=== PATIENT | male | born 1975 | race Caucasian/White ===

== ENCOUNTER 2019-09-08 06:12 | Inpatient (IN) | payer OTHER ==
[2019-09-08] MEDS ORDERED: Sodium Chloride 0.9% 10 ML Syringe FLUSH PRN (06:52)
[2019-09-08] MEDS ORDERED: HYDROmorphone 1 MG/ML Syringe IVPUSH ONE (06:53)
[2019-09-08] MEDS ORDERED: Midazolam 1 MG/ML 2 ML SDV IVPUSH ONE (06:53)
--- NOTE | 2019-09-08 07:01 | EDM.PDOC ---
ED HPI GENERAL MEDICAL PROBLEM - General Chief Complaint: Abdominal Pain Stated Complaint: LOWER ABD PAIN Time Seen by Provider: 09/08/19 06:45 Source of Information: Reports: Patient, Old Records, RN History Limitations: Reports: No Limitations - History of Present Illness INITIAL COMMENTS - FREE TEXT/NARRATIVE: 44 yo male with a long past hx of having a current abdominal hernia that he manages with a truss presents with what he thinks is about 3 hrs of this hernia being incarcerated. He says the hernia is more painful and prominent. He has not had any vomiting. This occurred after he had taken the truss off, but it was not associated with any exertion. 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 (see below) (none) Lower Abdomen Pain Score (Numeric/FACES): 9 - Related Data Allergies Allergy/AdvReac Type Severity Reaction Status Date / Time sulfamethoxazole Allergy Hives Verified 09/08/19 06:30 [From Bactrim] trimethoprim [From Bactrim] Allergy Hives Verified 09/08/19 06:30 Home Meds: Home Meds amLODIPine Besylate [Norvasc] 10 mg PO DAILY 09/08/19 [History] Past Medical History Cardiovascular History: Reports: Hypertension Musculoskeletal History: Reports: Fracture Other Musculoskeletal History: foot Endocrine/Metabolic History: Reports: Obesity/BMI 30+ - Infectious Disease History Infectious Disease History: Reports: Chicken Pox - Past Surgical History GI Surgical History: Reports: Other (See Below) Other GI Surgeries/Procedures: hernia x3 Surgery x2 Musculoskeletal Surgical History: Reports: Arthroscopic Procedure Social & Family History - Tobacco Use Smoking Status *Q: Current Some Day Smoker Years of Tobacco use: 20 Packs/Tins Daily: 1 Used Tobacco, but Quit: No Second Hand Smoke Exposure: Yes - Caffeine Use Caffeine Use: Reports: None - Recreational Drug Use Recreational Drug Use: No ED ROS GENERAL - Review of Systems Review Of Systems: See Below Constitutional: Reports: No Symptoms GI/Abdominal: Reports: Abdominal Pain, Other (bulge on anterior abdomen.). Denies: Black Stool, Bloody Stool, Constipation, Diarrhea, Distension, Flatus, Hematemesis, Hematochezia, Melena, Nausea, Vomiting : Reports: No Symptoms Musculoskeletal: Reports: No Symptoms Skin: Reports: No Symptoms Neurological: Reports: No Symptoms Psychiatric: Reports: No Symptoms ED EXAM, GI/ABD - Physical Exam Exam: See Below Exam Limited By: No Limitations General Appearance: Alert, WD/WN, No Apparent Distress, Obese Eyes: Bilateral: Normal Appearance Ears: Hearing Grossly Normal Nose: Normal Inspection, No Blood Throat/Mouth: Normal Voice, No Airway Compromise Head: Atraumatic, Normocephalic Neck: Normal Inspection Respiratory/Chest: No Respiratory Distress, Lungs Clear, Normal Breath Sounds, No Accessory Muscle Use Cardiovascular: Regular Rate, Rhythm, No Edema GI/Abdominal Exam: Normal Bowel Sounds, Soft, Tender, Hernia (anterior abdomen, incarcerated). No: Guarding, Rigid, Rebound Extremities: Normal Inspection, Normal Range of Motion, Non-Tender, No Pedal Edema Neurological: Alert, Oriented, CN II-XII Intact, Normal Cognition, No Motor/ Sensory Deficits Psychiatric: Normal Affect, Normal Mood Skin Exam: Warm, Dry, Intact, Normal Color, No Rash Course - Vital Signs Text/Narrative:: Dr. Tomer Hou called @ [phone], will see in ER. Last Recorded V/S: Last Vital Signs Temp 36.6 C 09/08/19 06:28 Pulse 89 09/08/19 06:28 Resp 16 09/08/19 06:28 BP 140/91 H 09/08/19 06:28 Pulse Ox 97 09/08/19 06:28 - Orders/Labs/Meds Orders: Active Orders 24 hr Category Date Time Status Sodium Chloride 0.9% [Saline Flush] Med 09/08/19 06:52 Active 10 ml FLUSH ASDIRECTED PRN Saline Lock Insert [OM.PC] Routine Oth 09/08/19 06:52 Ordered Medication Orders Sodium Chloride (Saline Flush) 10 ml FLUSH ASDIRECTED PRN PRN Reason: Keep Vein Open Meds: Medications Generic Name Dose Route Start Last Admin Trade Name Freq PRN Reason Stop Dose Admin Sodium Chloride 10 ml 09/08/19 06:52 Saline Flush FLUSH ASDIRECTED PRN Keep Vein Open Discontinued Medications Generic Name Dose Route Start Last Admin Trade Name Freq PRN Reason Stop Dose Admin Hydromorphone HCl 1 mg 09/08/19 06:53 09/08/19 07:02 Dilaudid IVPUSH 09/08/19 06:54 1 mg ONETIME ONE Administration Midazolam HCl 3 mg 09/08/19 06:53 09/08/19 07:06 Versed 1 Mg/Ml IVPUSH 09/08/19 06:54 3 mg ONETIME ONE Administration Departure - Departure Time of Disposition: 07:30 Disposition: Admitted As Inpatient 66 Condition: Fair Clinical Impression: Incarcerated hernia - Discharge Information *PRESCRIPTION DRUG MONITORING PROGRAM REVIEWED*: No *COPY OF PRESCRIPTION DRUG MONITORING REPORT IN PATIENT MYESHA: No Referrals: PCP,None [Primary Care Provider] - Forms: ED Department Discharge Sepsis Event Note - Evaluation Sepsis Screening Result: No Definite Risk - Focused Exam Vital Signs: Vital Signs Temp Pulse Resp BP Pulse Ox 09/08/19 06:28 36.6 C 89 16 140/91 H 97 Date Exam was Performed: 09/08/19 Time Exam was Performed: 07:21 - My Orders Last 24 Hours: My Active Orders 09/08/19 06:52 Sodium Chloride 0.9% [Saline Flush] 10 ml FLUSH ASDIRECTED PRN Saline Lock Insert [OM.PC] Routine - Assessment/Plan Last 24 Hours: My Active Orders 09/08/19 06:52 Sodium Chloride 0.9% [Saline Flush] 10 ml FLUSH ASDIRECTED PRN Saline Lock Insert [OM.PC] Routine
[2019-09-08] MEDS ORDERED: Naloxone 0.4 MG/ML SDV IV PRN (07:43)
[2019-09-08] MEDS ORDERED: Dextrose 5%-Lactated Ringers 1,000 ML IV SCH (07:45)
[2019-09-08] MEDS ORDERED: Bupivacaine 0.5% 50 ML MDV ONE (07:55)
[2019-09-08] MEDS ORDERED: Lidocaine 1% with EPINEPHrine 1:100,000 50 ML MDV ONE (07:55)
[2019-09-08] MEDS ORDERED: cefOXitin 2 GM in Sodium Chloride 0.9% 50 ML IV ONE (08:00)
[2019-09-08] MEDS ORDERED: Ketamine 500 MG/5 ML MDV IV SCH (08:00)
[2019-09-08] MEDS ORDERED: Ketamine 50 MG in Sodium Chloride 0.9% 49.5 ML IV SCH (08:00)
[2019-09-08] MEDS ORDERED: Propofol 200 MG/20 ML SDV ONE ×2 (08:08→09:50)
[2019-09-08] MEDS ORDERED: Neostigmine Methylsulfate 1 MG/ML 5 ML Syringe ONE (08:08)
[2019-09-08] MEDS ORDERED: Rocuronium 50 MG/5 ML Vial ONE (08:08)
[2019-09-08] MEDS ORDERED: Dexamethasone 4 MG/ML SDV ONE (08:08)
[2019-09-08] MEDS ORDERED: Succinylcholine 200 MG/10 ML MDV ONE (08:08)
[2019-09-08] MEDS ORDERED: Glycopyrrolate 0.2 MG/ML 5 ML MDV ONE (08:08)
[2019-09-08] MEDS ORDERED: Ondansetron 4 MG/2 ML SDV ONE (08:08)
[2019-09-08] MEDS ORDERED: fentaNYL 250 MCG/5 ML SDV ONE ×2 (08:08→08:27)
[2019-09-08] MEDS ORDERED: Meropenem 500 MG SDV ONE (09:05)
[2019-09-08] MEDS ORDERED: Lactated Ringers 1,000 ML ONE (10:19)
[2019-09-08] MEDS ORDERED: Ondansetron 4 MG/2 ML SDV IVPUSH PRN (11:03)
[2019-09-08] MEDS ORDERED: hydrOXYzine HCL 100 MG/2 ML SDV IM PRN (11:03)
[2019-09-08] MEDS ORDERED: Cyclobenzaprine 10 MG Tab PO PRN (11:04)
[2019-09-08] MEDS: Dextrose 5%-Lactated Ringers 1,000 ML IV SCH ×2 (11:19→16:52)
[2019-09-08] MEDS: HYDROmorphone/Normal Saline 15 MG/30 ML PCA IV PRN (11:49)
[2019-09-08] MEDS: cefOXitin 2 GM in Sodium Chloride 0.9% 50 ML IV SCH ×2 (12:54→18:32)
[2019-09-08] MEDS: Pantoprazole 40 MG Vial IVPUSH SCH (12:56)
[2019-09-08] MEDS: amLODIPine 10 MG Tab PO SCH (13:01)
[2019-09-09] MEDS: cefOXitin 2 GM in Sodium Chloride 0.9% 50 ML IV SCH ×3 (02:05→13:36)
[2019-09-09] MEDS: Dextrose 5%-Lactated Ringers 1,000 ML IV SCH (04:29)
--- NOTE | 2019-09-09 09:37 | PN ---
DATE OF SERVICE: 09/09/2019 SUBJECTIVE: Jad is postoperative day#1. He states his pain is controlled. He did have a temperature max of 100.9, worked on his incentive spirometer, and this a.m. it is 99. Oral intake, sips of clear liquids. Urine output via Feliciano catheter is 1525. REVIEW OF SYSTEMS: Remainder of review of systems negative for any pertinent positives and negatives. OBJECTIVE: GENERAL: Jad Vasques is a pleasant 44-year-old male, alert and orientated. VITAL SIGNS: TPR is 99, 69, 16, blood pressure 123/78. HEENT: Negative. NECK: Supple. HEART: Regular rate and rhythm. LUNGS: Clear. ABDOMEN: Dressing has some shadowing, otherwise negative. Abdominal binder is on. EXTREMITIES: Without peripheral edema. ASSESSMENT: Exploratory laparotomy with: 1. Repair of recurrent incarcerated incisional hernia. 2. Repair of incarcerated recurrent umbilical hernia. 3. Small bowel resection. 4. Small bowel strictureplasty. 5. Repair of small-bowel injury at point the bowel entering hernia sac. 6. Tube decompression of small bowel. 7. Removal of contracted intraperitoneal mesh x2. 8. Partial omentectomy and excision of appendix epiploica en bloc with hernia sac. 9. Placement of Interceed mesh. POSTOPERATIVE DIAGNOSIS: 1. Incarcerated recurrent incisional and incarcerated recurrent umbilical hernias. 2. Segment of small bowel with extensive mesenteric hemorrhage. 3. Segment of small bowel including stricture. 4. Marked distention of small bowel. 5. Contracted intraperitoneal mesh x2. 6. Partial portion of the omentum and appendix epiploica transverse colon ischemia secondary to incarceration. 7. Focal small bowel elongated edge of hernia repair. 8. Surgeon: Ran Hou MD. Date: 09/08/2019. PLAN: 1. Continue sips of clear liquids. Schedule and have consent signed for delayed primary closure on 09/10/2019. IV, local sedation with TAP block. N.p.o. after midnight. Surgeon: Ran Hou MD. 2. Discontinue Feliciano catheter. 3. Decrease IV to 100 mL per hour. 4. Continue good pulmonary toilet. 5. We will evaluate p.r.n. or in a.m. Nati Mcgarry PA-C /[id number]
[2019-09-09] MEDS: amLODIPine 10 MG Tab PO SCH (09:44)
[2019-09-09] MEDS: Pantoprazole 40 MG Vial IVPUSH SCH (13:36)
[2019-09-10] MEDS ORDERED: Lidocaine 1% with EPINEPHrine 1:100,000 50 ML MDV ONE (06:33)
[2019-09-10] MEDS ORDERED: Bupivacaine 0.5% 50 ML MDV ONE (06:33)
[2019-09-10] MEDS ORDERED: Meropenem 500 MG SDV ONE (06:33)
[2019-09-10] MEDS ORDERED: Midazolam 1 MG/ML 2 ML SDV ONE (06:55)
[2019-09-10] MEDS ORDERED: fentaNYL 100 MCG/2 ML SDV ONE (06:55)
[2019-09-10] MEDS ORDERED: Propofol 200 MG/20 ML SDV ONE ×2 (06:56→07:34)
[2019-09-10] MEDS ORDERED: Lactated Ringers 1,000 ML ONE (07:25)
[2019-09-10] MEDS: amLODIPine 10 MG Tab PO SCH (09:20)
--- NOTE | 2019-09-10 09:39 | PN ---
DATE OF SERVICE: 09/10/2019 SUBJECTIVE: Jad is n.p.o. He will be having delayed primary closure today. Max temperature is 101.1. Pain has been controlled. REVIEW OF SYSTEMS: Remainder of review of systems negative for any pertinent positives and negatives. OBJECTIVE: GENERAL: Jad Vasques is a 44-year-old male. He is alert and orientated. VITAL SIGNS: TPR 97.7, 94, 18, blood pressure 140/72. HEENT: Negative. NECK: Supple. HEART: Regular rate and rhythm. LUNGS: Clear. ABDOMEN: Dressing dry and intact. Abdominal binder is on. EXTREMITIES: Without peripheral edema. ASSESSMENT: Exploratory laparotomy with: 1. Repair of recurrent incarcerated incisional hernia. 2. Repair of incarcerated recurrent umbilical hernia. 3. Small bowel resection. 4. Small bowel strictureplasty. 5. Repair of small-bowel injury at point the bowel entering hernia sac. 6. Tube decompression of small bowel. 7. Removal of contracted intraperitoneal mesh x2. 8. Partial omentectomy and excision of appendix epiploica en bloc with hernia sac. 9. Placement of Interceed mesh. PLAN: Orders to be written after delayed primary closure. Nati Mcgarry PA-C /[id number]
[2019-09-10] MEDS: Docusate Sodium 100 MG Cap PO SCH ×2 (10:41→20:27)
[2019-09-10] MEDS: Bisacodyl 5 MG Tab PO SCH ×2 (10:41→20:27)
[2019-09-10] MEDS: Dextrose 5%-Lactated Ringers 1,000 ML IV SCH ×2 (10:43→20:26)
[2019-09-10] MEDS: Pantoprazole 40 MG Vial IVPUSH SCH (12:52)
[2019-09-10] MEDS: HYDROmorphone/Normal Saline 15 MG/30 ML PCA IV PRN (12:54)
[2019-09-10] MEDS ORDERED: oxyCODONE 5 MG Tab PO PRN (14:20)
[2019-09-11] MEDS ORDERED: Pantoprazole 40 MG Tab.CR PO SCH (09:00)
[2019-09-11] MEDS: Bisacodyl 5 MG Tab PO SCH (09:15)
[2019-09-11] MEDS: amLODIPine 10 MG Tab PO SCH (09:15)
[2019-09-11] MEDS: Docusate Sodium 100 MG Cap PO SCH (09:15)
--- NOTE | 2019-09-11 10:19 | DISCH ---
ADMISSION DIAGNOSES: 1. Abdominal pain. 2. Hypertension. DISCHARGE DIAGNOSES: Exploratory laparotomy with: 1. Repair of recurrent incarcerated incisional hernia. 2. Repair of incarcerated recurrent umbilical hernia. 3. Small bowel resection. 4. Small-bowel strictureplasty. 5. Repair of small-bowel injury at point the bowel entering hernia sac. 6. Tube decompression of small bowel. 7. Removal of contracted intraperitoneal mesh x2. a. Partial omentectomy and excision of appendix epiploica en bloc with hernia sac. 8. Placement of Interceed mesh. Date of surgery: 09/08/2019. Surgeon: Ran Hou MD. 9. Delayed primary closure on 09/10/2019. Ran Hou MD. HISTORY: Jad Vasques is a 44-year-old male who presented to [facility] Emergency Department with extreme abdominal pain. After preoperative evaluation and discussion of possible risks and possible complications, he wished to proceed with surgical procedure. HOSPITAL COURSE: Jad had his surgery on 09/08/2019. He had no operative complications. He had delayed primary closure on 09/10/2019. His diet was advanced. He had a bowel movement. Pain was controlled. Vital signs were stable. He was able to be discharged to home on 09/11/2019. PHYSICAL EXAMINATION: GENERAL: Dale Vasques is a 44-year-old male. VITAL SIGNS: Height is 5 feet 8.11 inches, weight is 236 pounds. TPR is 97.2, 75, 16, blood pressure 131/85. HEENT: Negative. NECK: Supple. HEART: Regular rate and rhythm. LUNGS: Clear. ABDOMEN: Aquacel dressing is on. He has 2 ESA drains and they are draining a light red drainage of 45 and 70 mL respectively. EXTREMITIES: Without peripheral edema. DISPOSITION: Discharged to home. CONDITION: Stable and improving. FOLLOWUP APPOINTMENT: Ran Hou MD, at [facility] on 09/18/2019 at 9:15 a.m. HOME MEDICATIONS: Colace 100 mg oral b.i.d. #60. He is to alternate Tylenol with ibuprofen, which he has at home for pain. Continue Norvasc 10 mg oral daily. DIET: Usual diet as tolerated. Drink 8 to 10 glasses of water a day. ACTIVITY: As tolerated. No lifting greater than 10 pounds for 6 weeks. Driving: Do not drive for 1 week. Shower/bathing, may shower. DISCHARGE INSTRUCTIONS: 1. Notify provider if any fever, increased pain, nausea, or vomiting. Keep site clean and dry. Wound incision care: Take off Aquacel dressing on 09/13/2019. 2. Strip, empty, measure, and record ESA drains 4 times a day and bring record of drainage to clinic appointments. 3. Wear abdominal binder for 6 weeks. SPECIAL INSTRUCTIONS: Use incentive spirometer 10 times every hour while awake.
--- NOTE | 2019-09-16 08:52 | OR ---
DATE OF PROCEDURE: 09/08/2019 SURGEON: Ran Hou MD PREOPERATIVE DIAGNOSIS: Incarcerated periumbilical hernia with extensive incarcerated small bowel. POSTOPERATIVE DIAGNOSES: 1. Incarcerated recurrent incisional hernia and incarcerated recurrent umbilical hernia. 2. Segment of small bowel with extensive mesenteric hemorrhage. 3. Segment of small bowel involving a stricture secondary to longstanding angulation within the hernia. 4. Marked distention of proximal small bowel. 5. Portion of omentum and appendix epiploica in transverse colon were ischemic secondary to incarceration in the hernias. 6. Contaminated intraperitoneal mesh x2. 7. Focal small bowel deserosalization at edge of previous hernia repair secondary to adherence to intraperitoneal mesh. OPERATIVE PROCEDURES: 1. Exploratory laparotomy with: a. Repair of recurrent incarcerated incisional hernia (88309). b. Repair of incarcerated recurrent umbilical hernia (09868). c. Small bowel resection (86888). d. Small bowel stricturoplasty (07438). e. Repair of area of small bowel injury at point where bowel entered the hernia sac and it was adherent to intraperitoneal mesh (40610). f. Tube decompression of proximal small bowel (68192). g. Removal of contaminated intraperitoneal mesh x2 (73735). h. Partial omentectomy and excision of appendix epiploica en bloc with hernia sac (54997). i. Placement of Interceed mesh to limit recurrent adhesion formation between pelvic and abdominal wall and underlying viscera (56310). ANESTHESIA: General. INDICATIONS FOR PROCEDURE: This is a 44-year-old presenting with a longstanding recurrent hernia that he has had repaired twice previously. The hernia in the umbilical area as well as 1 more supraumbilical ventral hernia area both of which by history were repaired with a mesh plug technique in either [place] or [place]. The patient has developed a large recurrent hernia involving both aspects of the previous repairs and now presenting with severe pain and obvious incarcerated bowel and the hernias at this point. Temporary reduction was undertaken in the emergency room which was unsuccessful. The plan will be to proceed with an exploratory laparotomy with reduction of the incarcerated components of the hernia as well as then repair of the hernias, and if bowel resection is required, the patient is aware that we would not likely place a new mesh which would make the hernia repairs at high risk for subsequent recurrence. Potential risks including bleeding, infection, injury to underlying viscera, possible leaks from any GI tract closures were all reviewed with the patient and he wishes to proceed. DETAILS OF PROCEDURE: The patient was taken to the operating room after general endotracheal anesthesia was induced, a Feliciano catheter was inserted, and the abdomen was prepped and draped. A midline incision which included incision around the umbilicus and somewhat inferior to this that was roughly handbreadth further superiorly was made and carried down through the skin and subcutaneous tissue. The ventral hernia sac was encountered above the umbilicus. This was dissected down to the level of fascia on each level. There was a small bridge of intact fascia between that and the umbilical hernia, which also was quite large and such that dissection of that sac likewise was then completed after intact fascia. The hernia sacs were at this point more or less a combined entity and both hernia sacs were open and the patient was noted to have a large amount of incarcerated small bowel within it. Portion of the small bowel had quite a bit in the way of mesenteric hemorrhage within it and questionable viability. There was another segment of small bowel coming into the hernia which had likely been distorted for some time, and after reduction, we had persistent stricture with the estimated lumen being less than pencil size in diameter. The patient had the 2 intraperitoneal meshes which by definition at this point would be contaminated with the bowel resection. One of these had loop of small bowel which were densely adherent to it along with the adjacent hernia sac and that bowel was then deserosalized as it was dissected away from the hernia sac and adherent mesh. The hernia sac was then excised flush with the fascia using Harmonic Scalpel along with viola. The hernia sac contained some ischemic omentum as well as a single appendix epiploica from the transverse colon which was ischemic and these were excised en bloc with the hernia sac and sent as a specimen. At this point, the area of the mesenteric hemorrhage and small bowel were resected and being divided proximally and distally with ADRIANA stapler. Proximal to this, there was marked small bowel distention and in the proximal end of the divided bowel, small opening was made and a [place] sump tube placed. Large volume of air and fluid were evacuated by that means. With that opening being maintained, the more distal segment of bowel was brought up to it and 2 internal firings of the Endo-ADRIANA 60 mm stapler were accomplished. The common opening was closed transversely with the same stapler and angles anastomosed and mesenteric defect approximated with some 3-0 Vicryl stitch. The area of small bowel stricturing was managed by means of maintaining antimesenteric border incision at the point of the stricture and with the bowel flipped over on itself, the one-on-one GI staplers were placed, initially 60 mm ADRIANA fired and second internal firing of the ADRIANA 30 mm stapler. The common opening was then closed transversely with the same stapler as well and the angles anastomosed were reinforced with 3-0 Vicryl stitch. There was no mesenteric defect here to close. The area of small bowel injury at the point where it was adherent to the hernia sac and intraperitoneal mesh was then managed by means of transverse firing of the ADRIANA stapler across the area of deserosalization and this was then reinforced with some 3-0 Vicryl seromuscular stitch as well. During the course of the dissection, 2 potentially contaminated areas of intraperitoneal mesh were then also excised. At this point, no further problems were noted and the abdomen was irrigated with meropenem- containing saline solution. To limit recurrent adhesion formation between the area of the incision as well as adjacent bowel to the abdominal wall, Interceed mesh was placed. The primary small bowel anastomosis was also reinforced with some fibrin sealant. The midline fascia was then approximated with a #2 Vicryl stitch. The skin and subcutaneous tissue were packed open for a planned delayed primary closure in 48 hours. Prior to closure, bilateral transversus abdominis blocks were placed and the patient was taken to the recovery room in satisfactory condition. There were no evident complications. Ran Hou MD /[id number]
== END 2019-09-11 10:30 | disposition home or self-care (01) | DRG 329 ==
LOC: JP.ED 06:12 → JP.SDS 07:33 → JP.ICU 11:15 → JP.MS 17:00
PROVIDERS: ADMIT Surgery; ATTEND Surgery
PROC: 0DB80ZZ Excision of Small Intestine, Open Approach (ICD-10-PCS; principal; 2019-09-08)
PROC: 0WQF0ZZ Repair Abdominal Wall, Open Approach (ICD-10-PCS; 2019-09-08)
PROC: 0WPF0JZ Removal of Synthetic Substitute from Abdominal Wall, Open Approach (ICD-10-PCS; 2019-09-08)
PROC: 0DBU0ZZ Excision of Omentum, Open Approach (ICD-10-PCS; 2019-09-08)
PROC: 0DBJ0ZZ Excision of Appendix, Open Approach (ICD-10-PCS; 2019-09-08)
PROC: 3E0M05Z Introduction of Adhesion Barrier into Peritoneal Cavity, Open Approach (ICD-10-PCS; 2019-09-08)
DX: K43.0 Incisional hernia with obstruction, without gangrene (principal); K66.1 Hemoperitoneum; K55.1 Chronic vascular disorders of intestine; K42.0 Umbilical hernia with obstruction, without gangrene; E66.9 Obesity, unspecified; I10 Essential (primary) hypertension; F17.210 Nicotine dependence, cigarettes, uncomplicated; K63.89 Other specified diseases of intestine; Z88.1 Allergy status to other antibiotic agents; Z79.899 Other long term (current) drug therapy; Z98.890 Other specified postprocedural states; Z88.2 Allergy status to sulfonamides; Z68.35 Body mass index [BMI] 35.0-35.9, adult
CPT/HCPCS: 36415; 80053; 83735; 84100; 85027; 88302; 88304; 88307; 94762; 96374; 96375; 99283; 99285-25; A9270-GY; C9113; J0171; J0330; J0694; J1100; J1170; J2185; J2250; J2405; J2704; J2710; J2795; J3010; J3490; J7050; J7120; J7121

== ENCOUNTER 2020-11-03 10:04 | Emergency (ER) | payer SELFPAY ==
--- NOTE | 2020-11-03 10:31 | EDM.PDOC ---
ED HPI GENERAL MEDICAL PROBLEM - General Chief Complaint: Chest Pain Stated Complaint: CHEST PAIN Time Seen by Provider: 11/03/20 10:48 Source of Information: Reports: Patient, RN Notes Reviewed History Limitations: Reports: No Limitations - History of Present Illness INITIAL COMMENTS - FREE TEXT/NARRATIVE: 45-year-old gentleman presents emergency department a complaint of chest pain, he states the chest pain came on last night when he tried to lay down go to bed describes it more as a pressure predominantly on the right side still feel a little flushed not necessarily diaphoretic maybe dizzy not necessarily nauseated. He is very concerned however he did not admit to eating a meal that may have caused some reflux type symptomology which she has had in the past just prior to this episode of chest discomfort Right Chest Pain Score (Numeric/FACES): 1 - Related Data Allergies Allergy/AdvReac Type Severity Reaction Status Date / Time lactose Allergy Abdominal Verified 11/03/20 10:31 Pain sulfamethoxazole Allergy Hives Verified 11/03/20 10:31 [From Bactrim] trimethoprim [From Bactrim] Allergy Hives Verified 11/03/20 10:31 Home Meds: Home Meds amLODIPine Besylate [Norvasc] 10 mg PO DAILY 09/08/19 [History] Past Medical History Cardiovascular History: Reports: Hypertension Musculoskeletal History: Reports: Fracture Other Musculoskeletal History: foot Endocrine/Metabolic History: Reports: Obesity/BMI 30+ - Infectious Disease History Infectious Disease History: Reports: Chicken Pox - Past Surgical History Cardiovascular Surgical History: Reports: None GI Surgical History: Reports: Other (See Below) Other GI Surgeries/Procedures: hernia x3 Surgery x2 Endocrine Surgical History: Reports: None Musculoskeletal Surgical History: Reports: Arthroscopic Procedure Social & Family History - Family History Family Medical History: No Pertinent Family History - Caffeine Use Caffeine Use: Reports: Soda ED ROS GENERAL - Review of Systems Review Of Systems: See Below Constitutional: Reports: No Symptoms. Denies: Diaphoresis HEENT: Reports: No Symptoms Respiratory: Reports: No Symptoms Cardiovascular: Reports: Chest Pain GI/Abdominal: Reports: Nausea ED EXAM, GENERAL - Physical Exam Exam: See Below Exam Limited By: No Limitations General Appearance: Alert, WD/WN, No Apparent Distress Respiratory/Chest: No Respiratory Distress, Lungs Clear, Normal Breath Sounds, No Accessory Muscle Use, Chest Non-Tender Cardiovascular: Regular Rate, Rhythm, No Murmur GI/Abdominal: Soft, Non-Tender Extremities: No Pedal Edema #1 Interpretation EKG Date: 11/03/20 Time: 10:19 Rhythm: NSR May: Normal P-Wave: Present QRS: Normal ST-T: Normal QT: Normal Comparison: NA - No Prior EKG Course - Vital Signs Last Recorded V/S: Last Vital Signs Temp 98.1 F 11/03/20 10:31 Pulse 83 11/03/20 10:31 Resp 16 11/03/20 10:31 BP 138/92 H 11/03/20 10:31 Pulse Ox 96 11/03/20 10:31 - Orders/Labs/Meds Orders: Active Orders 24 hr Category Date Time Status Cardiac Monitoring [RC] .As Directed Care 11/03/20 10:47 Active EKG Documentation Completion [RC] ASDIRECTED Care 11/03/20 10:48 Active EKG 12 Lead [EK] Stat Ther 11/03/20 10:48 Ordered Labs: Laboratory Tests 11/03/20 11/03/20 Range/Units 10:55 10:55 WBC 6.6 (4.5-11.0) K/uL RBC 5.65 (4.30-5.90) M/uL Hgb 17.1 H D (12.0-15.0) g/dL Hct 48.8 (40.0-54.0) % MCV 86 (80-98) fL MCH 30 (27-31) pg MCHC 35 (32-36) % Plt Count 183 (150-400) K/uL Neut % (Auto) 58 (36-66) % Lymph % (Auto) 30 (24-44) % Barber % (Auto) 10 H (2-6) % Eos % (Auto) 2 (2-4) % Baso % (Auto) 1 (0-1) % Sodium 142 (140-148) mmol/L Potassium 3.9 (3.6-5.2) mmol/L Chloride 105 (100-108) mmol/L Carbon Dioxide 24 (21-32) mmol/L Anion Gap 13.0 (5.0-14.0) mmol/L BUN 18 (7-18) mg/dL Creatinine 1.0 (0.8-1.3) mg/dL Est Cr Clr Drug Dosing 95.25 mL/min Estimated GFR (MDRD) > 60 (>60) Glucose 112 H (74-106) mg/dL Calcium 9.2 (8.5-10.1) mg/dL Troponin I < 0.017 (0.000-0.056) ng/mL Departure - Departure Time of Disposition: 12:01 Disposition: Home, Self-Care 01 Condition: Fair Clinical Impression: Atypical chest pain Instructions: Nonspecific Chest Pain, Adult Referrals: PCP,None [Primary Care Provider] - Forms: ED Department Discharge Additional Instructions: Try [id number] reflux medications, please followup with your primary care provider in 3-5 days if not better, please call return to the emergency department with worsening of symptoms. Sepsis Event Note (ED) - Focused Exam Vital Signs: Vital Signs Temp Pulse Resp BP Pulse Ox 11/03/20 10:31 98.1 F 83 16 138/92 H 96 11/03/20 10:25 98.1 F 83 16 138/92 H 96 - My Orders Last 24 Hours: My Active Orders 11/03/20 10:47 Cardiac Monitoring [RC] .As Directed 11/03/20 10:48 EKG Documentation Completion [RC] ASDIRECTED EKG 12 Lead [EK] Stat - Assessment/Plan Last 24 Hours: My Active Orders 11/03/20 10:47 Cardiac Monitoring [RC] .As Directed 11/03/20 10:48 EKG Documentation Completion [RC] ASDIRECTED EKG 12 Lead [EK] Stat Plan: Assessment Acuity = acute Site and laterality = atypical chest pain Etiology = unknown suspicious for reflux Manifestations = none Location of injury = Home Lab values = CBC BMP troponin all negative EKG demonstrates a sinus rhythm there is no ST elevations or depressions chest x-ray shows no acute process Plan He remained asymptomatic while in the emergency department asked him to try some [id number] reflux medications first and then follow-up primary care 3 to 5 days if not better This note was dictated using [employer] voice recognition software please call with any questions on syntax or grammar.
--- NOTE | 2020-11-03 11:21 | CR ---
CHEST: 2 view CLINICAL HISTORY:Chest pain COMPARISON:None FINDINGS: The heart size, pulmonary vascularity and hilar structures are normal. No infiltrate effusion or pneumothorax is seen. IMPRESSION: No acute cardiopulmonary process.
== END 2020-11-03 12:20 | disposition home or self-care (01) ==
LOC: JP.ED 10:04
DX: R07.89 Other chest pain (principal); I10 Essential (primary) hypertension; E66.9 Obesity, unspecified; Z68.41 Body mass index [BMI] 40.0-44.9, adult; Z91.048 Other nonmedicinal substance allergy status; Z88.1 Allergy status to other antibiotic agents; Z88.2 Allergy status to sulfonamides
CPT/HCPCS: 36415; 71046; 71046-26; 80048; 84484; 85025; 93005; 99285-25